=== PATIENT | female | born 1945 | race Caucasian/White ===

== ENCOUNTER → 2016-12-29 | Outpatient (CLI) | payer MEDICARE | END | disposition home or self-care (01) | LOC: CFH 12:25 | PROVIDERS: ATTEND Nurse Practitioner Family | DX: Z12.31 Encounter for screening mammogram for malignant neoplasm of breast (principal); Z13.820 Encounter for screening for osteoporosis; N95.9 Unspecified menopausal and perimenopausal disorder; M81.0 Age-related osteoporosis without current pathological fracture | CPT/HCPCS: 77080; G0202 ==

== ENCOUNTER → 2018-06-21 | Outpatient (CLI) | payer MEDICARE, OTHER | END | disposition home or self-care (01) | LOC: CFH 10:19 | PROVIDERS: ATTEND Licensed Practical Nurse | DX: Z12.31 Encounter for screening mammogram for malignant neoplasm of breast (principal) | CPT/HCPCS: 77067 ==

== ENCOUNTER 2019-06-27 10:44 | Outpatient (CLI) | payer MEDICARE, OTHER | END 2019-06-27 23:59 | disposition home or self-care (01) | LOC: CFH 10:44 | PROVIDERS: ATTEND Licensed Practical Nurse | DX: Z12.31 Encounter for screening mammogram for malignant neoplasm of breast (principal); N95.9 Unspecified menopausal and perimenopausal disorder; M89.9 Disorder of bone, unspecified; M81.0 Age-related osteoporosis without current pathological fracture | CPT/HCPCS: 77063; 77067; 77080 ==

== ENCOUNTER → 2019-09-07 | Outpatient (CLI) | payer MEDICARE, OTHER | END | disposition home or self-care (01) | LOC: CFH 09:44 | PROVIDERS: ATTEND Licensed Practical Nurse | DX: R92.2 Inconclusive mammogram (principal) | CPT/HCPCS: 76641 ==

== ENCOUNTER 2020-08-01 10:42 | Outpatient (CLI) | payer MEDICARE, OTHER | END 2020-08-01 23:59 | disposition home or self-care (01) | LOC: CFH 10:42 | PROVIDERS: ATTEND Nurse Practitioner Family | DX: Z12.31 Encounter for screening mammogram for malignant neoplasm of breast (principal); M81.0 Age-related osteoporosis without current pathological fracture | CPT/HCPCS: 77063; 77067; 77080 ==

== ENCOUNTER → 2020-08-29 | Outpatient (CLI) | payer MEDICARE, OTHER | END | disposition home or self-care (01) | LOC: CFH 14:34 | PROVIDERS: ATTEND Nurse Practitioner Family | DX: I08.3 Combined rheumatic disorders of mitral, aortic and tricuspid valves (principal) | CPT/HCPCS: 93306 ==